=== PATIENT | female | born 1935 | race Caucasian/White ===

== ENCOUNTER → 2022-07-15 | Outpatient (CLI) | payer MEDICARE | END | disposition home or self-care (01) | LOC: LAB 11:30 → LAB SHORT 11:30 | DX: J20.0 Acute bronchitis due to Mycoplasma pneumoniae (principal) ==

== ENCOUNTER → 2022-12-26 | Outpatient (CLI) | payer OTHER ==
[2022-12-26 18:40] LABS: Percent Saturation 10.6 % (15.0-50.0)
== END | disposition home or self-care (01) ==
LOC: LAB SHORT 16:30 → LAB 16:30
PROVIDERS: Physician Assistant
DX: D64.9 Anemia, unspecified (principal)
CPT/HCPCS: 82728; 83540; 83550

== ENCOUNTER → 2023-01-04 | Outpatient (CLI) | payer OTHER ==
[2023-01-05 13:59] LABS: Stool Occult Bld Immuno 1 Negative (NEGATIVE)
== END | disposition home or self-care (01) ==
LOC: LAB SHORT 12:10 → LAB 12:10
PROVIDERS: Physician Assistant
DX: D64.9 Anemia, unspecified (principal)
CPT/HCPCS: 82274

== ENCOUNTER 2024-10-21 08:07 | Observation (INO) | payer OTHER ==
[~2024-10-21] VITALS: Ht 165.1 cm; Wt 53.4 kg
[2024-10-21] VITALS (25 sets, daily range): BP systolic 116–187; BP diastolic 70–123
[~2024-10-21 08:07] MED LIST: ALBU90OI INH; ALEN70 PO; BUSP10 PO; EZET10 PO; FURO20 PO; Isosorbide Mono30 MG PO; Nitrostat0.3 MG SL; OMEP20ER PO; POTA10T PO
--- NOTE | 2024-10-21 10:00 | NUR ---
pt given another blanket per request
[2024-10-21] MEDS ORDERED: Verapamil HCL 2.5 MG/ML 2ML Injection ONE (11:55)
[2024-10-21] MEDS ORDERED: Nitroglycerin 2 MG/20 ML BTL ONE (11:56)
[2024-10-21] MEDS ORDERED: Heparin Sodium 1000 Units/ML 10ML MDV ONE (11:56)
[2024-10-21] MEDS ORDERED: NS 1,000 ML IV ONE ×2 (11:56→12:16)
[2024-10-21] MEDS ORDERED: NS 250 ML IV ONE (11:56)
[2024-10-21] MEDS ORDERED: FentaNYL Citrate 50 MCG/ML 2 ML Injection ONE (12:15)
[2024-10-21] MEDS ORDERED: Midazolam HCl 1MG / ML 2ML Vial ONE (12:16)
--- NOTE | 2024-10-21 13:00 | NUR ---
PT BACK TO RECOVERY ROOM. TR BAND AND PRESSURE DRESSING TO R WRIST AND R FA. NO BLEEDING NOTED. GOOD PLETH TO R DIGITS ON SPO2 MONITOR.
--- NOTE | 2024-10-21 13:28 | NUR ---
pt given coffee per request. pt sitting up. radial site soft and non-tender per pt. no bleedin noted to radial site.
--- NOTE | 2024-10-21 13:41 | NUR ---
PRESSURE DRESSING TO R FA REMOVED. SITE SOFT AND NON-TENDER PER PT. NO BLEEDING OR SWELLING NOTED. R RADIAL SITE SOFT AND NON-TENDER PER PT. NO BLEEDING NOTED.
--- NOTE | 2024-10-21 13:54 | NUR ---
2cc removed from tr band. site soft and non-tender per pt. no bleeding noted.
[2024-10-21] MEDS ORDERED: HydrALAZINE HCl 25 MG Tab PO ONE (14:20)
--- NOTE | 2024-10-21 14:22 | NUR ---
pt co increased pain to r fa. avionics electronics technician malcolm rn assessed fa and felt it is swollen. dr crenshaw notifed. dr crenshaw to admit pt. pt hypertensive, dr crenshaw notified and gave verbal order for 25mg of hydralazine.
--- NOTE | 2024-10-21 14:32 | NUR ---
PT AMBULATED TO RESTROOM. PT NOW BACK IN BED. REPEAT V/S. 2CC REMOVED FROM TR BAND. RADIAL SITE SOFT AND NON-TENDER PER PT.
[2024-10-21] MEDS ORDERED: Acetaminophen 325 MG TABLET PO PRN (14:45)
[2024-10-21] MEDS ORDERED: FLU VACC TS2024-25(6MOS UP)/PF 45 MCG/0.5 ML SYRINGE IM SCH (14:50)
--- NOTE | 2024-10-21 14:50 | NUR ---
ULTRASOUND AT BEDSIDE
--- NOTE | 2024-10-21 15:00 | NUR ---
HOSPITALIST AT BEDSIDE TO EVALUATE PT.
--- NOTE | 2024-10-21 15:06 | NUR ---
TR BAND FULLY DEFLATED. SITE SOFT AND NON-TENDER PER PT. NO BLEEDING NOTED.
[2024-10-21] MEDS ORDERED: Acetaminophen 325 MG TABLET ONE (15:09)
--- NOTE | 2024-10-21 15:13 | NUR ---
DR DE LA FUENTE AT BEDSIDE
--- NOTE | 2024-10-21 15:37 | NUR ---
pt taken to [facility] via [facility]. pt report given to lavern gonsalves. no further questions reported.
[2024-10-21] MEDS ORDERED: HydrALAZINE HCl 20 MG / ML 1ML Vial IV PRN (15:50)
[2024-10-21] MEDS ORDERED: Alendronate Sodium 70 MG Tablet PO SCH (16:15)
[2024-10-21] MEDS ORDERED: Nitroglycerin 0.4 MG SUBL SL PRN (16:25)
[2024-10-21 16:27] LABS: BASOPHILS ABSOLUTE AUTO 0.08 K/mm3 (0.00-0.23); BASOPHILS PERCENT AUTO 1 % (0-2); EOSINOPHILS ABSOLUTE AUTO 0.36 K/mm3 (0.00-0.68); EOSINOPHILS PERCENT AUTO 5 % (0-6); Hematocrit 34.6 % (33.0-51.0); Hemoglobin 11.3 g/dL (11.5-16.0); IMMATURE GRAN ABSOLUTE AUTO 0.02 K/mm3 (0.00-0.10); IMMATURE GRAN PERCENT AUTO 0 % (0-1); LYMPHOCYTES ABSOLUTE AUTO 1.58 K/mm3 (0.84-5.20); LYMPHOCYTES PERCENT AUTO 23 % (21-46); MONOCYTES PERCENT AUTO 9 % (4-13); Mean Corpuscular HGB 31.1 pg (26.0-34.0); Mean Corpuscular HGB Conc 32.7 g/dL (31.5-36.5); Mean Corpuscular Volume 95 fL (80-100); Mean Platelet Volume 8.9 fL (9.1-12.4); NEUTROPHILS ABSOLUTE AUTO 4.18 K/mm3 (1.96-9.15); NEUTROPHILS PERCENT AUTO 61 % (41-73); Platelet Count 318 K/mm3 (150-400); RDW Coefficient Variation 12.8 % (11.7-14.2); RDW Standard Deviation 45.3 fL (35.1-46.3); Red Blood Cell Count 3.63 M/mm3 (3.80-5.20); White Blood Cell Count 6.82 K/mm3 (4.00-11.30)
[2024-10-21] MEDS ORDERED: Omeprazole 20 MG CapCR PO SCH (16:30)
[2024-10-21 16:41] LABS: Bun/Creatinine Ratio 16.8 (12.0-20.0); Calcium, Blood 9.7 mg/dL (8.5-10.1); Creatinine, Blood 0.72 mg/dL (0.40-1.00); Potassium, Blood 3.7 mmol/L (3.5-5.5)
[2024-10-21] MEDS ORDERED: LOSA50 PO (16:44)
[2024-10-21] MEDS ORDERED: GABA100 PO (16:44)
--- NOTE | 2024-10-21 17:06 | NUR ---
ASSUMPTION OF CARE/SHIFT SUMMARY PT ARRIVED TO PCU AROUND 1530. REPORT RECIEVED FROM BLOW MOLDING MACHINE OPERATOR RN. PT STOOD UP AND TRANSFERED FROM [facility] TO PCU BED. RIGHT RADIAL SITE FROM ANGIOGRAM. SITE RECOVERED AT [facility]. TR BAND IN PLACE, NO ACTIVE BLEEDING NOTED, NO BRUSIING. PER REPORT PT HAD A HEMATOMA OF THE UPPER ARM, PRESSURE APPLIED FOR 45 MINUTES, HEMATOMA IMPROVED. ARMBOARD IN PLACE. SLING PUT ON ARM FOR REMINDER TO NOT USE. SINUS RHYTHM, HR IN THE 60'S, DENIES CP/PRESSURE, REPORTS NEUROPATHY. BP ELEVATED, PER REPORT PT RECEIVED DOSE OF HYDRALAZINE. O2 >92% ON RA, DENIES SOB. TR BAND REMOVED, TEGADERM APPLIED. ARM MEASURED AT 23CM. PT REPORTS TENDER OF ARM BUT REPORTS IMPROVMENT OF SWELLING. PT DENIES ANY QUESTIONS AT THIS TIME. WILL MONITOR AND REPORT TO AUTO RESEARCH ENGINEER RN.
--- NOTE | 2024-10-21 20:16 | NUR ---
ASSUMPTION OF CARE ASSUMED CARE OF PATIENT AT 1900, BEDSIDE SHIFT REPORT RECEIVED FROM DONA RN. PT RESTING IN BED, SLEEPING BUT AROUSABLE. PT ORIENTED X4, ANSWERS QUESTIONS APPROPRIATELY, FOLLOWS DIRECTIONS WHEN PROMPTED AND IS ABLE TO MAKE HER NEEDS KNOWN. PT AMBULATES IN THE ROOM INDEPENDENTLY. MINIMAL MOVEMENT TO RIGHT ARM DUE TO ARM BOARD AND SLING IN PLACE POST CARDIAC CATH PROCEDURE. HR 70'S SINUS, SBP 160'S, MAP >65. PT DENIES CP/PRESSURE. PT ON RA, OXYGEN SATURATION >95%. ABDOMEN SOFT, BOWEL TONES ACTIVE THROUGHOUT, PT DENIES N/V. PT AMBULATES TO BEDSIDE TOILET TO VOID. PIV IN PLACE TO LAC SL. RIGHT ARM MEASURED AT MARKED SITE, 22CM, NO REDNESS NOTED, SITE NOT HOT TO THE TOUCH. PT STATES THAT SHE BELIEVES THE SWELLING HAS IMPROVED. ACCESS SITE TO RIGHT RADIAL, TEGADERM IN PLACE, SITE SOFT. BED IN LOWEST POSITION, CALL LIGHT WITHIN REACH, CARE CONTINUES.
[2024-10-21] MEDS ORDERED: BusPIRone HCl 10 MG Tab PO SCH (21:00)
[2024-10-22 03:44] VITALS: BP 149/96
--- NOTE | 2024-10-22 06:14 | NUR ---
SHIFT SUMMARY NO ACUTE CHANGES THIS SHIFT. PT CONTINUES TO REST IN BED, SLEEPING BUT AROUSABLE. PT ORIENTED X4, ANSWERS QUESTIONS APPROPRIATELY, FOLLOWS DIRECTION WHEN PROMPTED AND IS ABLE TO MAKE HER NEEDS KNOWN. PT AMBULATES IN THE ROOM INDEPENDENTLY WITH MINIMAL HELP WITH CORD MANAGEMENT. HR 70'S SINUS, MAP >65. PT DENIES CP/PRESSURE. RIGHT RADIAL ACCESS SITE WITH TEGADERM AND ARMBOARD IN PLACE, SITE SOFT. ARM MEASURED THIS SHIFT AT MARKED AREA, SWELLING APPEARS TO HAVE IMPROVED. PT STATES IT IS PAINFUL WHEN HER ARM IS STRAIGHT. PT ON RA, OXYGEN SATURATION >95%. ABDOMEN SOFT, BOWEL TONES ACTIVE THROUGHOUT, PT HAD 1 BM THIS SHIFT. PT AMBULATES TO TOILET TO VOID. PIV IN PLACE TO LAC SL. BED IN LOWEST POSTION, CALL LIGHT WITHIN REACH, CARE CONTINUES.
[2024-10-22 07:31] VITALS: BP 144/79
[2024-10-22] MEDS ORDERED: Furosemide 20 MG Tab PO SCH (09:00)
[2024-10-22] MEDS ORDERED: Isosorbide Mononitrate 60 MG TABCR PO SCH (09:00)
[2024-10-22] MEDS ORDERED: Potassium Chloride 10 Meq Tablet SA PO SCH (09:00)
[2024-10-22] MEDS ORDERED: Enoxaparin 30 MG/0.3 ML SYR SC SCH (09:00)
[2024-10-22] MEDS ORDERED: AmLODIPine Besylate 5 MG Tab PO SCH (09:00)
[2024-10-22] MEDS ORDERED: Ezetimibe 10 MG Tab PO SCH (09:00)
[2024-10-22] MEDS ORDERED: AMLO10 PO (10:23)
[2024-10-22 10:32] VITALS: BP 92/62
[2024-10-22] MEDS ORDERED: NS 500 ML IV SCH (12:00)
--- NOTE | 2024-10-22 12:17 | NUR ---
REPORT RECEIVED VERIFIED PT A/O X4 ABD VERY PLEASENT IS HOPING TO GO HOME THIS MORNING. SOFTWARE EDUCATOR IN TO SEE PT AND OKed discharge. PT HAS NO COMPLAINTS OF PAIN SHOWS NO DISTRESS, RIGHT ARM SITE LOOKS CDI, NO S/S OF BLEEDING.
--- NOTE | 2024-10-22 12:20 | NUR ---
0945 DISCHARGE ORDERS RECEIVED AND IMPLEMENTED. PT WAS ASSISTED TO STAND BUT BECAME VERY DIZZY AND DIAPHORETIC, PT WAS HYPOTENSIVE IN THE 90S SO WAS ASSISTED BACK TO BED, ATTEMPTED ORTHOSTATICS BUT PT TO DIZZY. DR CORBIN NOTIFIED AND DISCHARGE HELD FOR THE MORNING, BOLUS ORDERED TO BE GIVEN. NEW IV STARTED TO LEFT AC AND BOLUS STARTED. PT STATED SHE FEELS FINE NOW AND IS FEEDING SELF LUNCH.
[2024-10-22] MEDS ORDERED: NS 500 ML IV ONE (15:15)
== END 2024-10-22 17:11 | disposition home or self-care (01) ==
LOC: MHTC 08:07 → MEDS 09:00 → MHTC 09:00 → PCU 09:00 → MHTC 11-21 08:00
PROVIDERS: Family Medicine; ADMIT Internal Medicine
DX: I25.10 Atherosclerotic heart disease of native coronary artery without angina pectoris (principal); I12.9 Hypertensive chronic kidney disease with stage 1 through stage 4 chronic kidney disease, or unspecified chronic kidney disease; N18.30 Chronic kidney disease, stage 3 unspecified; E78.2 Mixed hyperlipidemia; Z79.899 Other long term (current) drug therapy; Z88.1 Allergy status to other antibiotic agents; Z88.2 Allergy status to sulfonamides; Z88.8 Allergy status to other drugs, medicaments and biological substances; M79.89 Other specified soft tissue disorders; Z91.013 Allergy to seafood; Z90.710 Acquired absence of both cervix and uterus
CPT/HCPCS: 36415; 76937; 80048; 85025; 93454; 93931; 93971; 99152; 99153; A9270; C1769; C1887; C1894; G0378; J1644; J2250; J3010; J7030; J7040; J7050; Q9967

== ENCOUNTER 2024-12-31 15:10 | Inpatient (IN) | payer OTHER ==
[~2024-12-31] VITALS: Ht 165.1 cm; Wt 53.5 kg
[~2024-12-31 15:10] MED LIST changes: +AMLO10 PO; +GABA100 PO; +LOSA25 PO
[2024-12-31 16:01] LABS: BASOPHILS ABSOLUTE AUTO 0.06 K/mm3 (0.00-0.23); BASOPHILS PERCENT AUTO 1 % (0-2); EOSINOPHILS ABSOLUTE AUTO 0.18 K/mm3 (0.00-0.68); EOSINOPHILS PERCENT AUTO 2 % (0-6); Hemoglobin 11.5 g/dL (11.5-16.0); IMMATURE GRAN ABSOLUTE AUTO 0.04 K/mm3 (0.00-0.10); IMMATURE GRAN PERCENT AUTO 0 % (0-1); LYMPHOCYTES ABSOLUTE AUTO 1.62 K/mm3 (0.84-5.20); LYMPHOCYTES PERCENT AUTO 16 % (21-46); MONOCYTES ABSOLUTE AUTO 0.85 K/mm3 (0.16-1.47); MONOCYTES PERCENT AUTO 8 % (4-13); Mean Corpuscular HGB 30.7 pg (26.0-34.0); Mean Corpuscular HGB Conc 32.9 g/dL (31.5-36.5); Mean Corpuscular Volume 93 fL (80-100); NEUTROPHILS ABSOLUTE AUTO 7.52 K/mm3 (1.96-9.15); NEUTROPHILS PERCENT AUTO 73 % (41-73); Platelet Count 357 K/mm3 (150-400); RDW Coefficient Variation 12.7 % (11.7-14.2); RDW Standard Deviation 43.8 fL (35.1-46.3); Red Blood Cell Count 3.75 M/mm3 (3.80-5.20); White Blood Cell Count 10.27 K/mm3 (4.00-11.30)
[2024-12-31 17:00] LABS: Alanine Aminotransfer (ALT/SGP 20 U/L (12-78); Albumin, Blood 3.5 g/dL (3.4-5.0); Albumin/Globulin Ratio 0.9 (0.8-1.8); Alk Phos 53 U/L (50-136); Anion Gap 13 mmol/L (3-11); Aspartate Aminotrans (AST/SGOT 16 U/L (12-37); Bilirubin, Direct <0.1 mg/dL (0.0-0.3); Bilirubin, Indirect Unable to Calculate mg/dL (0.1-0.7); Bilirubin, Total 0.6 mg/dL (0.1-1.0); Blood Urea Nitrogen 17 mg/dL (8-24); Bun/Creatinine Ratio 21.7 (12.0-20.0); CO2, Blood 24 mmol/L (21-32); Calcium, Blood 9.9 mg/dL (8.5-10.1); Chloride, Blood 106 mmol/L (98-108); Creatinine, Blood 0.78 mg/dL (0.40-1.00); Globulin, Blood 3.8 g/dL (2.2-4.0); Glomerular Filtration Rate 73 (60-); Glucose, Blood 103 mg/dL (70-99); Sodium, Blood 139 mmol/L (136-145); Total Protein, Blood 7.3 g/dL (6.4-8.2)
[2024-12-31 18:51] LABS: Source, Urine Clean Catch
[2024-12-31] MEDS ORDERED: Amoxicillin/Clavulanate K 875 MG Tab PO ONE (19:10)
[2024-12-31 19:15] LABS: Appearance, Urine Clear (Clear); Bilirubin, Urine Neg (Neg); Blood, Urine Neg (Neg); Color, Urine Yellow (P-Yellow); Glucose Qualitative, Urine Neg (Neg); Ketones, Urine 1+ (Neg); Leukocyte Esterase, Urine 1+ (Neg); Nitrite, Urine Neg (Neg); Protein, Urine Neg (Neg); Urobilinogen, Urine NORM (Normal); pH, Urine 6.5 (5.0-8.0)
[2024-12-31] MEDS ORDERED: Piperacillin/Tazobactam Sod 4.5 GM in NS 100 ML IV ONE (19:35)
[2024-12-31 19:37] LABS: Bacteria Few /hpf; Red Blood Cells, Urine Not Seen /hpf (0-2); Squamous Epithelial Cells Few /hpf (Few)
[2024-12-31] MEDS ORDERED: OxyCODONE 5 mg/Acetamin 325 mg TABLET PO PRN (19:50)
[2024-12-31] MEDS ORDERED: Ondansetron HCl 2 MG / ML 2ML Vial IV PRN (19:50)
[2024-12-31] MEDS ORDERED: Lactated Ringer's 1,000 ML IV SCH (19:50)
[2024-12-31] MEDS ORDERED: Lactated Ringer's 500 ML IV ONE (20:00)
[2024-12-31] MEDS ORDERED: Lactobacil 2-S.Thermo-Bifido 1 1 Cap PO SCH (21:00)
[2024-12-31] MEDS ORDERED: BusPIRone HCl 10 MG Tab PO SCH (21:00)
[2024-12-31 22:27] VITALS: BP 159/66
[2025-01-01] MEDS ORDERED: Piperacillin/Tazobactam Sod 3.375 GM in NS 100 ML IV SCH (01:27)
[2025-01-01] MEDS ORDERED: NS 250 ML IV PRN (01:50)
[2025-01-01 02:41] VITALS: BP 142/68
--- NOTE | 2025-01-01 05:05 | NUR ---
SHIFT SUMMARY PT A&Ox4 AND PLEASANT. PT C/O RLQ PAIN BUT DECLIINED PAIN MEDICATIONS. PT REPOSITIONED AND HEAT PACK APPLIED WITH GOOD EFFECT. PT TOLERATING CL DIET. LR INFUSING @ 75ml/hr. IV ABX GIVEN PER EMAR. NEW ASIF BANDAGE PLACED ON LEFT ANKLE. PT REPORTS FALL AT HOME AND FRACTURED ANKLE PER PCP BUT OK TO WALK. VSS. BED IN LOWEST POSITION AND CALL LIGHT IN REACH.
[2025-01-01 05:17] LABS: Hematocrit 32.3 % (33.0-51.0); Hemoglobin 10.6 g/dL (11.5-16.0); Mean Corpuscular HGB 30.6 pg (26.0-34.0); Mean Corpuscular HGB Conc 32.8 g/dL (31.5-36.5); Mean Corpuscular Volume 93 fL (80-100); Mean Platelet Volume 8.8 fL (9.1-12.4); Platelet Count 306 K/mm3 (150-400); RDW Coefficient Variation 12.7 % (11.7-14.2); RDW Standard Deviation 43.6 fL (35.1-46.3); Red Blood Cell Count 3.46 M/mm3 (3.80-5.20); White Blood Cell Count 6.15 K/mm3 (4.00-11.30)
[2025-01-01 05:43] LABS: Calcium, Blood 9.3 mg/dL (8.5-10.1); Creatinine, Blood 0.84 mg/dL (0.40-1.00); Potassium, Blood 3.8 mmol/L (3.5-5.5)
[2025-01-01] MEDS ORDERED: Omeprazole 20 MG CapCR PO SCH (06:00)
[2025-01-01 07:10] VITALS: BP 134/69
[2025-01-01] MEDS ORDERED: Losartan Potassium 50 MG Tab PO SCH (09:00)
[2025-01-01] MEDS ORDERED: AmLODIPine Besylate 5 MG Tab PO SCH (09:00)
[2025-01-01] MEDS ORDERED: Isosorbide Mononitrate 60 MG TABCR PO SCH (09:00)
[2025-01-01 12:40] VITALS: BP 99/56
[2025-01-01 17:38] VITALS: BP 113/54
--- NOTE | 2025-01-01 19:27 | NUR ---
PT A&OX4, VSS WITH ONE LOW BP EARLY THIS AFTERNOON, PT REPORTED FEELING DIZZY WHEN STANDING. SBA WITH FWW TO BATHROOM. LR CONTINUOUS AT 75ML/HR. PT C/O HEADACHE, ABDOMINAL PAIN, AND NAUSEA. MEDICATED PER EMAR WITH GOOD EFFECT. PT PLEASANT AND COOPERATIVE WITH CARE, CALL LIGHT IN REACH, BED IN LOW LOCKED POSITION. 1 SMALL BM THIS SHIFT. DR. ALFARO CONSULTED.
[2025-01-01 19:28] VITALS: BP 111/59
[2025-01-01 22:24] VITALS: BP 107/58
[2025-01-02 03:04] VITALS: BP 100/50
--- NOTE | 2025-01-02 03:08 | NUR ---
ATTEMPTED TO CONTACT DR. KOHLER PODIATRY TO INFORM OF CONSULT ORDER BUT I KEPT GETTING A BUSY SIGNASL
--- NOTE | 2025-01-02 04:56 | NUR ---
SHIFT SUMMARY PT ALERT ORIENTED X 4 ABLE TO VERBALIZE NEEDS GETS UP AND AMBULATES TO THE BATHROOM WITH WALKER ANDS SBA. SHE HAS A CONSULT ORDERED FOR HER FX TO THE LT ANKLE. I ATTEMPTED TO CALL SEVERAL TIMES BUT JUST GET A BUSY SIGNAL. VSS ON RA SATTING AT 98%. C/O ABD PAIN MEDICATED WITH PERCOCET WITH GOOD RELIEF. REMAINS ON ZOSYN Q6HR. REMAINS ON LR AT 75. SHE USES A HEATING PAD TO HER ABD TO HELP WITH THE PAIN. RESTING IN BED AT THIS TIME WITH CALL LITGHT IN REACH
[2025-01-02 05:43] LABS: BASOPHILS ABSOLUTE AUTO 0.05 K/mm3 (0.00-0.23); BASOPHILS PERCENT AUTO 1 % (0-2); EOSINOPHILS ABSOLUTE AUTO 0.29 K/mm3 (0.00-0.68); EOSINOPHILS PERCENT AUTO 5 % (0-6); Hematocrit 28.7 % (33.0-51.0); Hemoglobin 9.2 g/dL (11.5-16.0); IMMATURE GRAN ABSOLUTE AUTO 0.01 K/mm3 (0.00-0.10); IMMATURE GRAN PERCENT AUTO 0 % (0-1); LYMPHOCYTES ABSOLUTE AUTO 1.42 K/mm3 (0.84-5.20); LYMPHOCYTES PERCENT AUTO 22 % (21-46); MONOCYTES ABSOLUTE AUTO 0.74 K/mm3 (0.16-1.47); MONOCYTES PERCENT AUTO 12 % (4-13); Mean Corpuscular HGB 30.5 pg (26.0-34.0); Mean Corpuscular HGB Conc 32.1 g/dL (31.5-36.5); Mean Corpuscular Volume 95 fL (80-100); NEUTROPHILS ABSOLUTE AUTO 3.83 K/mm3 (1.96-9.15); NEUTROPHILS PERCENT AUTO 60 % (41-73); Platelet Count 277 K/mm3 (150-400); RDW Coefficient Variation 12.8 % (11.7-14.2); RDW Standard Deviation 44.3 fL (35.1-46.3); Red Blood Cell Count 3.02 M/mm3 (3.80-5.20); White Blood Cell Count 6.34 K/mm3 (4.00-11.30)
[2025-01-02 06:14] LABS: C-REACTIVE PROTEIN, EXT RANGE <0.290 mg/dL (0.000-0.300); Magnesium, Blood 2.2 mg/dL (1.6-2.4)
[2025-01-02 06:15] LABS: Alanine Aminotransfer (ALT/SGP 12 U/L (12-78); Albumin, Blood 2.8 g/dL (3.4-5.0); Albumin/Globulin Ratio 0.9 (0.8-1.8); Alk Phos 35 U/L (50-136); Anion Gap 7 mmol/L (3-11); Aspartate Aminotrans (AST/SGOT 9 U/L (12-37); Bilirubin, Total 0.9 mg/dL (0.1-1.0); Blood Urea Nitrogen 8 mg/dL (8-24); Bun/Creatinine Ratio 8.7 (12.0-20.0); CO2, Blood 28 mmol/L (21-32); Calcium, Blood 8.9 mg/dL (8.5-10.1); Chloride, Blood 109 mmol/L (98-108); Creatinine, Blood 0.92 mg/dL (0.40-1.00); Glomerular Filtration Rate 60 (60-); Glucose, Blood 83 mg/dL (70-99); Phosphorus, Blood 3.3 mg/dL (2.5-4.9); Potassium, Blood 3.6 mmol/L (3.5-5.5); Sodium, Blood 140 mmol/L (136-145); Total Protein, Blood 5.8 g/dL (6.4-8.2)
[2025-01-02 07:13] VITALS: BP 125/69
--- NOTE | 2025-01-02 10:14 | NUR ---
DR. HALLE ALFARO IN TO SEE PT AT BEDSIDE. PER , OK TO UPDATED DIET ORDER TO FIBER RESTRICTED AT THIS TIME.
--- NOTE | 2025-01-02 17:37 | NUR ---
SUMMARY NO ACUTE CHANGES THIS SHIFT. PT DIET UPGRADED TO LOW FIBER, TOLORATING SO FAR. SOME ABD DISCOMFORT AFTER LUNCH. PT DENIES SHARP PAIN. DR. KOHLER AT BEDSIDE TODAY. PLAN IS TO FOLLOW UP OUT PATIENT FOR WALKING CAST BOOT. PER DR. KOHLER OK TO LEAVE CURRENT SPLINT IN PLACE. PT IS SBA TO BATHROOM DUE TO LINES. ALERT AND ORIENTED X4, ABLE TO EXPRESS NEEDS.
[2025-01-02] MEDS ORDERED: Piperacillin/Tazobactam Sod 2.25 GM in NS 50 ML IV SCH (18:00)
[2025-01-02 22:03] VITALS: BP 132/67
--- NOTE | 2025-01-03 04:02 | NUR ---
SHIFT SUMMARY PT ALERT ORIENTED X 4 ABLE TO VERBALIZE NEEDS AMBULATES WITH SBA AND WALKER TO THE BATHROOM. SHE HAS A BRACE ON HER LT ANKLE R/T FX THAT SHE SUSTAINED BEFORE ADMIT. CONTINUES ON ZOSYN Q6HR. REMAINS ON LR AT 50. C/O ABD AND FOOT PAIN MEDICATED WITHG PERCOCET WITH GOOD PAIN RELIEF. CONTINUES ON A FIBER RESTRICTED DIET. VSS ON RA SATTING AT 95%. RESTING IN BED AT THIS TIME WITH CALL LIGHT IN REACH
[2025-01-03 04:44] VITALS: BP 125/58
[2025-01-03 07:31] VITALS: BP 132/71
[2025-01-03] MEDS ORDERED: Polyethylene Glycol 3350 17 gm PO PRN (10:00)
[2025-01-03] MEDS ORDERED: Polyethylene Glycol 3350 17 gm PO ONE (10:00)
--- NOTE | 2025-01-03 19:06 | NUR ---
SUMMARY NO ACUTE CHANGES THIS SHIFT. PT ABD PAIN TREATED PER EMAR. TOLORATING FULL LIQUID DIET. CALLS APPROPRIATELY. PT DID HAVE BM THIS SHIFT. BUT FLUSHED BEFORE STAFF COULD ASSESS. ORIENTED X4
[2025-01-03 19:35] VITALS: BP 108/58
[2025-01-04 03:24] VITALS: BP 137/83
--- NOTE | 2025-01-04 04:07 | NUR ---
SHIFT SUMMARY PT ALERT ORIENTED ABLE TO VERBALIZE NEEDS. AMBULATES TO THE BATHROOM WITH SBA AND WALKER. SHE HAS A BRACE ON HER LT ANKLE THAT WAS FRACTURED BEFORE HER ADMIT. SHE WILL FOLLOW UP WITH THE TOOL REPAIR TECHNICIAN AFTER DISCHARGE. SHE HAD A MEDIUM BM THIS SHIFT. REMAINS ON ZOSYN Q6HR. VSS ON RA SATTING AT 96%. REMAINS ON LR AT 50. SHE REMAINS ON A FULL LIQUID DIET DUE TO WHEN THE TRIED TO UP HER DIET SHE WAS HAVING MORE PAIN TO HER ABD. SHE REMAINS ON PERCOCET TO HELP TO CONTROL HER PAIN BUT THESE MEDS TEND TO MAKE HER A LITTLE CONFUSED. SHES RESTING IN BED AT THIS TIME WITH CALL LIGHT IN REACH
[2025-01-04 05:33] LABS: BASOPHILS ABSOLUTE AUTO 0.08 K/mm3 (0.00-0.23); BASOPHILS PERCENT AUTO 1 % (0-2); EOSINOPHILS PERCENT AUTO 7 % (0-6); Hematocrit 28.5 % (33.0-51.0); Hemoglobin 9.4 g/dL (11.5-16.0); IMMATURE GRAN ABSOLUTE AUTO 0.03 K/mm3 (0.00-0.10); IMMATURE GRAN PERCENT AUTO 1 % (0-1); LYMPHOCYTES ABSOLUTE AUTO 1.37 K/mm3 (0.84-5.20); LYMPHOCYTES PERCENT AUTO 22 % (21-46); MONOCYTES ABSOLUTE AUTO 0.66 K/mm3 (0.16-1.47); MONOCYTES PERCENT AUTO 11 % (4-13); Mean Corpuscular HGB 30.8 pg (26.0-34.0); Mean Corpuscular Volume 93 fL (80-100); NEUTROPHILS ABSOLUTE AUTO 3.64 K/mm3 (1.96-9.15); NEUTROPHILS PERCENT AUTO 59 % (41-73); Platelet Count 290 K/mm3 (150-400); RDW Coefficient Variation 12.6 % (11.7-14.2); RDW Standard Deviation 42.8 fL (35.1-46.3); Red Blood Cell Count 3.05 M/mm3 (3.80-5.20); White Blood Cell Count 6.18 K/mm3 (4.00-11.30)
[2025-01-04 06:15] LABS: Albumin, Blood 2.9 g/dL (3.4-5.0); Albumin/Globulin Ratio 0.9 (0.8-1.8); Bilirubin, Total 0.8 mg/dL (0.1-1.0); Bun/Creatinine Ratio 9.3 (12.0-20.0); Creatinine, Blood 0.75 mg/dL (0.40-1.00); Globulin, Blood 3.3 g/dL (2.2-4.0); Potassium, Blood 3.4 mmol/L (3.5-5.5); Total Protein, Blood 6.2 g/dL (6.4-8.2)
[2025-01-04 08:04] VITALS: BP 142/70
[2025-01-04] MEDS ORDERED: AMOCLA875 PO (12:51)
--- NOTE | 2025-01-04 13:13 | NUR ---
DISCHARGE NOTE PT DISCHARGED TO HOME, PICKED UP BY HER . IV REMOVED. NO ACUTE CHANGES PRIOR TO DISCHARGE. PT HAS NO COMPLAINTS. TOLERATING FULL LIQUID DIET WELL. MEDICATED FOR PAIN PRIOR TO THE DISCHARGE. DISCHARGE EDUCATION AND INFORMATION REVIEWED WITH THE PT. MEDICATIONS FAXED TO THE PHARMACY OF HER CHOICE.
== END 2025-01-04 13:04 | disposition home or self-care (01) | DRG 392 ==
LOC: ER 15:10 → MEDS 15:11
PROVIDERS: Hospitalist; Nurse Practitioner Acute Care; Student in an Organized Health Care Education/Training Program; ADMIT Student in an Organized Health Care Education/Training Program
DX: K57.20 Diverticulitis of large intestine with perforation and abscess without bleeding (principal); I10 Essential (primary) hypertension; K21.9 Gastro-esophageal reflux disease without esophagitis; I25.10 Atherosclerotic heart disease of native coronary artery without angina pectoris; M81.0 Age-related osteoporosis without current pathological fracture; F41.9 Anxiety disorder, unspecified; K59.00 Constipation, unspecified; Z88.2 Allergy status to sulfonamides; W19.XXXD Unspecified fall, subsequent encounter; E78.00 Pure hypercholesterolemia, unspecified; Z88.1 Allergy status to other antibiotic agents; Z91.013 Allergy to seafood; Z91.018 Allergy to other foods; Z91.048 Other nonmedicinal substance allergy status; Z79.899 Other long term (current) drug therapy; Z90.49 Acquired absence of other specified parts of digestive tract; Z98.890 Other specified postprocedural states; M20.42 Other hammer toe(s) (acquired), left foot; M20.41 Other hammer toe(s) (acquired), right foot; S92.352G Displaced fracture of fifth metatarsal bone, left foot, subsequent encounter for fracture with delayed healing; Z86.79 Personal history of other diseases of the circulatory system
CPT/HCPCS: 36415; 73610; 74177; 80048; 80053; 80076; 81001; 83690; 83735; 84100; 85025; 85027; 86140; 87086; 96366; 96375; 96376; 97110; 97161; 99285-25; A9270; G0378; J2405; J2543; J7050; J7120; Q9967

== ENCOUNTER 2025-02-02 08:45 | Emergency (ER) | payer OTHER ==
[~2025-02-02] VITALS: Ht 157.5 cm; Wt 54.4 kg
[~2025-02-02 08:45] MED LIST changes: +AMOCLA875 PO
[2025-02-02 09:27] LABS: BASOPHILS ABSOLUTE AUTO 0.05 K/mm3 (0.00-0.23); BASOPHILS PERCENT AUTO 1 % (0-2); EOSINOPHILS ABSOLUTE AUTO 0.15 K/mm3 (0.00-0.68); EOSINOPHILS PERCENT AUTO 2 % (0-6); Hematocrit 33.8 % (33.0-51.0); Hemoglobin 11.1 g/dL (11.5-16.0); IMMATURE GRAN ABSOLUTE AUTO 0.03 K/mm3 (0.00-0.10); IMMATURE GRAN PERCENT AUTO 0 % (0-1); LYMPHOCYTES ABSOLUTE AUTO 1.13 K/mm3 (0.84-5.20); LYMPHOCYTES PERCENT AUTO 12 % (21-46); MONOCYTES ABSOLUTE AUTO 0.75 K/mm3 (0.16-1.47); MONOCYTES PERCENT AUTO 8 % (4-13); Mean Corpuscular HGB 30.6 pg (26.0-34.0); Mean Corpuscular HGB Conc 32.8 g/dL (31.5-36.5); Mean Corpuscular Volume 93 fL (80-100); Mean Platelet Volume 8.8 fL (9.1-12.4); NEUTROPHILS ABSOLUTE AUTO 7.18 K/mm3 (1.96-9.15); NEUTROPHILS PERCENT AUTO 77 % (41-73); Platelet Count 313 K/mm3 (150-400); RDW Coefficient Variation 12.9 % (11.7-14.2); Red Blood Cell Count 3.63 M/mm3 (3.80-5.20); White Blood Cell Count 9.29 K/mm3 (4.00-11.30)
[2025-02-02 09:35] LABS: Source, Urine Clean Catch
[2025-02-02 09:38] LABS: Appearance, Urine Cloudy (Clear); Bilirubin, Urine Neg (Neg); Blood, Urine 5+ (Neg); Color, Urine Yellow (P-Yellow); Glucose Qualitative, Urine Neg (Neg); Ketones, Urine Neg (Neg); Leukocyte Esterase, Urine 3+ (Neg); Nitrite, Urine Neg (Neg); Protein, Urine 2+ (Neg); Urobilinogen, Urine NORM (Normal); pH, Urine 6.5 (5.0-8.0)
[2025-02-02 09:48] LABS: Albumin, Blood 3.4 g/dL (3.4-5.0); Albumin/Globulin Ratio 0.9 (0.8-1.8); Bilirubin, Total 0.6 mg/dL (0.1-1.0); Bun/Creatinine Ratio 16.5 (12.0-20.0); Calcium, Blood 9.5 mg/dL (8.5-10.1); Creatinine, Blood 0.79 mg/dL (0.40-1.00); Globulin, Blood 3.7 g/dL (2.2-4.0); Potassium, Blood 3.4 mmol/L (3.5-5.5); Total Protein, Blood 7.1 g/dL (6.4-8.2)
[2025-02-02 10:25] LABS: Bacteria Many /hpf; Red Blood Cells, Urine 25-50 /hpf (0-2); Squamous Epithelial Cells Few /hpf (Few); White Blood Cells, Urine 50-100 /hpf (0-5)
[2025-02-02] MEDS ORDERED: NITR100CA PO (11:14)
[2025-02-02 11:28] VITALS: BP 134/94
== END 2025-02-02 11:41 | disposition home or self-care (01) ==
LOC: ER 08:45
PROVIDERS: Student in an Organized Health Care Education/Training Program
DX: N39.0 Urinary tract infection, site not specified (principal); Z79.899 Other long term (current) drug therapy; Z88.2 Allergy status to sulfonamides; Z88.1 Allergy status to other antibiotic agents; Z91.013 Allergy to seafood; Z88.8 Allergy status to other drugs, medicaments and biological substances
CPT/HCPCS: 74177; 80053; 81001; 85025; 87077; 87086; 87186; 99284-25; Q9967

== ENCOUNTER 2025-02-03 23:59 | Emergency (ER) | payer OTHER ==
[~2025-02-03] VITALS: Ht 165.1 cm; Wt 53.5 kg
[~2025-02-03 23:59] MED LIST changes: +NITR100CA PO
[2025-02-04 00:49] LABS: BASOPHILS ABSOLUTE AUTO 0.05 K/mm3 (0.00-0.23); BASOPHILS PERCENT AUTO 0 % (0-2); EOSINOPHILS ABSOLUTE AUTO 0.03 K/mm3 (0.00-0.68); EOSINOPHILS PERCENT AUTO 0 % (0-6); Hematocrit 32.5 % (33.0-51.0); IMMATURE GRAN ABSOLUTE AUTO 0.04 K/mm3 (0.00-0.10); IMMATURE GRAN PERCENT AUTO 0 % (0-1); LYMPHOCYTES ABSOLUTE AUTO 0.79 K/mm3 (0.84-5.20); LYMPHOCYTES PERCENT AUTO 7 % (21-46); MONOCYTES ABSOLUTE AUTO 1.05 K/mm3 (0.16-1.47); MONOCYTES PERCENT AUTO 9 % (4-13); Mean Corpuscular HGB 30.7 pg (26.0-34.0); Mean Corpuscular HGB Conc 33.8 g/dL (31.5-36.5); Mean Corpuscular Volume 91 fL (80-100); NEUTROPHILS PERCENT AUTO 83 % (41-73); RDW Coefficient Variation 12.8 % (11.7-14.2); RDW Standard Deviation 42.4 fL (35.1-46.3); Red Blood Cell Count 3.58 M/mm3 (3.80-5.20); White Blood Cell Count 11.46 K/mm3 (4.00-11.30)
[2025-02-04 00:57] LABS: CORONAVIRUS COVID-19 AG Negative (NEGATIVE); INFLUENZA A AG Negative (NEGATIVE); INFLUENZA B AG Negative (NEGATIVE)
[2025-02-04 01:07] LABS: Platelet Count 291 K/mm3 (150-400)
[2025-02-04 01:11] LABS: Albumin, Blood 3.5 g/dL (3.4-5.0); Bilirubin, Total 1.1 mg/dL (0.1-1.0); Bun/Creatinine Ratio 12.9 (12.0-20.0); Calcium, Blood 8.9 mg/dL (8.5-10.1); Creatinine, Blood 0.78 mg/dL (0.40-1.00); Globulin, Blood 3.6 g/dL (2.2-4.0); Potassium, Blood 3.4 mmol/L (3.5-5.5); Thyroid Stimulating Hormone 1.08 uIU/mL (0.360-4.800); Total Protein, Blood 7.1 g/dL (6.4-8.2)
[2025-02-04 02:18] LABS: Source, Urine Straight Cath
[2025-02-04 02:36] LABS: Bilirubin, Urine Neg (Neg); Blood, Urine Neg (Neg); Glucose Qualitative, Urine Neg (Neg); Ketones, Urine 3+ (Neg); Leukocyte Esterase, Urine Neg (Neg); Nitrite, Urine Neg (Neg); Protein, Urine 1+ (Neg); Urobilinogen, Urine NORM (Normal)
[2025-02-04 02:58] LABS: Color, Urine Yellow (P-Yellow)
[2025-02-04 02:59] LABS: Appearance, Urine Hazy (Clear); Bacteria Few /hpf; Red Blood Cells, Urine 0-2 /hpf (0-2); Squamous Epithelial Cells Few /hpf (Few)
[2025-02-04 03:00] VITALS: BP 146/69
[2025-02-04] MEDS ORDERED: Potassium Chloride 10 Meq Tablet SA PO ONE (03:05)
[2025-02-04] MEDS ORDERED: NS 1,000 ML IV SCH (03:05)
== END 2025-02-04 03:19 | disposition home or self-care (01) ==
LOC: ER 23:59
PROVIDERS: Emergency Medicine
DX: E86.0 Dehydration (principal); E87.6 Hypokalemia; N39.0 Urinary tract infection, site not specified; I10 Essential (primary) hypertension; E78.5 Hyperlipidemia, unspecified; K21.9 Gastro-esophageal reflux disease without esophagitis; Z88.2 Allergy status to sulfonamides; Z91.013 Allergy to seafood; Z79.899 Other long term (current) drug therapy; Z79.2 Long term (current) use of antibiotics; Z79.84 Long term (current) use of oral hypoglycemic drugs
CPT/HCPCS: 80053; 81001; 83690; 83735; 84100; 84443; 84484; 85025; 87086; 87428-QW; 93005; 93010; 99284-25; A9270

== ENCOUNTER 2025-02-11 11:23 | Inpatient (IN) | payer OTHER ==
[~2025-02-11] VITALS: Ht 165.1 cm; Wt 54.5 kg
[2025-02-11 12:16] LABS: BASOPHILS ABSOLUTE AUTO 0.05 K/mm3 (0.00-0.23); BASOPHILS PERCENT AUTO 1 % (0-2); EOSINOPHILS ABSOLUTE AUTO 0.06 K/mm3 (0.00-0.68); EOSINOPHILS PERCENT AUTO 1 % (0-6); Hematocrit 26.7 % (33.0-51.0); Hemoglobin 8.9 g/dL (11.5-16.0); IMMATURE GRAN ABSOLUTE AUTO 0.05 K/mm3 (0.00-0.10); IMMATURE GRAN PERCENT AUTO 1 % (0-1); LYMPHOCYTES ABSOLUTE AUTO 0.53 K/mm3 (0.84-5.20); LYMPHOCYTES PERCENT AUTO 5 % (21-46); MONOCYTES ABSOLUTE AUTO 0.37 K/mm3 (0.16-1.47); MONOCYTES PERCENT AUTO 3 % (4-13); Mean Corpuscular HGB 31.3 pg (26.0-34.0); Mean Corpuscular HGB Conc 33.3 g/dL (31.5-36.5); Mean Corpuscular Volume 94 fL (80-100); Mean Platelet Volume 8.5 fL (9.1-12.4); NEUTROPHILS PERCENT AUTO 90 % (41-73); Platelet Count 335 K/mm3 (150-400); RDW Coefficient Variation 12.5 % (11.7-14.2); RDW Standard Deviation 43.4 fL (35.1-46.3); Red Blood Cell Count 2.84 M/mm3 (3.80-5.20); White Blood Cell Count 11.06 K/mm3 (4.00-11.30)
[2025-02-11 12:46] LABS: Albumin, Blood 2.7 g/dL (3.4-5.0); Albumin/Globulin Ratio 0.8 (0.8-1.8); Bilirubin, Total 0.3 mg/dL (0.1-1.0); Bun/Creatinine Ratio 13.7 (12.0-20.0); Calcium, Blood 8.7 mg/dL (8.5-10.1); Creatinine, Blood 0.73 mg/dL (0.40-1.00); Globulin, Blood 3.2 g/dL (2.2-4.0); Potassium, Blood 3.8 mmol/L (3.5-5.5); Total Protein, Blood 5.9 g/dL (6.4-8.2)
[2025-02-11 14:48] LABS: Source, Urine Clean Catch
[2025-02-11 14:58] LABS: Appearance, Urine Clear (Clear); Bilirubin, Urine Neg (Neg); Blood, Urine Neg (Neg); Color, Urine Yellow (P-Yellow); Glucose Qualitative, Urine Neg (Neg); Ketones, Urine Neg (Neg); Leukocyte Esterase, Urine Neg (Neg); Nitrite, Urine Neg (Neg); Protein, Urine 2+ (Neg); Urobilinogen, Urine NORM (Normal)
[2025-02-11 15:23] LABS: Bacteria Few /hpf; Red Blood Cells, Urine 0-2 /hpf (0-2); Squamous Epithelial Cells Few /hpf (Few)
[2025-02-11] MEDS ORDERED: Lactated Ringer's 1,000 ML IV SCH (15:30)
[2025-02-11] MEDS ORDERED: FentaNYL Citrate 50 MCG/ML 2 ML Injection IV PRN (15:30)
[2025-02-11] MEDS ORDERED: Piperacillin/Tazobactam Sod 3.375 GM in NS 100 ML IV SCH (16:00)
--- NOTE | 2025-02-11 18:30 | NUR ---
ADMISSION PATIENT ADMITTED TO MEDICAL FLOOR. PATIENT ALERT AND INTERACTIVE. PATIENT ABLE TO AMBULATE TO BR WITH WALKER AND STAND BY ASSIST. PATIENT CHANGED INTO GOWN. ON RETURN BACK TO BED, PATIENT VERBALIZED DIZZINESS WHEN SHE LAID DOWN. PATIENT STATES THAT SHE HAS PROBLEMS WITH DIZZINESS AT TIMES WHEN SHE LAYS DOWN. PATIENT INSTRUCTED TO CALL WHEN NEEDS TO GET OUT OF BED FOR SAFETY.
[2025-02-11 19:36] VITALS: BP 149/81
[2025-02-11] MEDS ORDERED: Lactobacil 2-S.Thermo-Bifido 1 1 Cap PO SCH (21:00)
[2025-02-11] MEDS ORDERED: NS 250 ML IV PRN (22:30)
[2025-02-12 04:23] VITALS: BP 120/61
--- NOTE | 2025-02-12 04:32 | NUR ---
SHIFT SUMMARY PT A&Ox4 AND PLEASANT. PT C/O LEFT ABD PAIN ONCE DURING THE NIGHT. MEDICATED PER EMAR WITH GOOD EFFECT. LR INFUSING @ 100ml/hr. IV ABX GIVEN PER ORDER. PT TOLERATING CL DIET. DENIES N/V. BED ALARM ON DURING THE NIGHT. BED IN LOWEST POSTION AND CALL LIGHT IN REACH.
[2025-02-12 04:38] LABS: BASOPHILS ABSOLUTE AUTO 0.04 K/mm3 (0.00-0.23); BASOPHILS PERCENT AUTO 0 % (0-2); EOSINOPHILS ABSOLUTE AUTO 0.15 K/mm3 (0.00-0.68); EOSINOPHILS PERCENT AUTO 2 % (0-6); Hematocrit 27.4 % (33.0-51.0); Hemoglobin 9.1 g/dL (11.5-16.0); IMMATURE GRAN ABSOLUTE AUTO 0.06 K/mm3 (0.00-0.10); IMMATURE GRAN PERCENT AUTO 1 % (0-1); LYMPHOCYTES PERCENT AUTO 12 % (21-46); MONOCYTES ABSOLUTE AUTO 0.96 K/mm3 (0.16-1.47); MONOCYTES PERCENT AUTO 10 % (4-13); Mean Corpuscular HGB 31.2 pg (26.0-34.0); Mean Corpuscular HGB Conc 33.2 g/dL (31.5-36.5); Mean Corpuscular Volume 94 fL (80-100); Mean Platelet Volume 8.6 fL (9.1-12.4); NEUTROPHILS ABSOLUTE AUTO 6.93 K/mm3 (1.96-9.15); NEUTROPHILS PERCENT AUTO 75 % (41-73); Platelet Count 339 K/mm3 (150-400); RDW Coefficient Variation 12.8 % (11.7-14.2); RDW Standard Deviation 43.9 fL (35.1-46.3); Red Blood Cell Count 2.92 M/mm3 (3.80-5.20); White Blood Cell Count 9.24 K/mm3 (4.00-11.30)
[2025-02-12 05:02] LABS: Bun/Creatinine Ratio 8.2 (12.0-20.0); Calcium, Blood 8.7 mg/dL (8.5-10.1); Creatinine, Blood 0.85 mg/dL (0.40-1.00); Potassium, Blood 3.6 mmol/L (3.5-5.5)
[2025-02-12 07:31] VITALS: BP 118/59
[2025-02-12] MEDS ORDERED: Enoxaparin 40 MG/0.4 ML SYR SC SCH (09:00)
[2025-02-12 15:48] VITALS: BP 137/67
--- NOTE | 2025-02-12 18:32 | NUR ---
PT A&OX4, RA, NON TELE. DR. MAS CONSULTED TODAY AND DOES NOT PLAN ON DOING SURGERY AT THIS TIME. PT REPORTS NO ABDOMINAL PAIN, AND WOULD LIKE TO ADVANCE DIET. IV LR DISCONTINUED, IV ANTIBIOTICS GIVEN ORDERED. UP TO BATHROOM 1 PA WITH FWW.
[2025-02-12 19:49] VITALS: BP 131/71
[2025-02-13 03:17] VITALS: BP 132/64
--- NOTE | 2025-02-13 04:22 | NUR ---
SHIFT SUMMARY PT ALERT ORIENTED X 4 ABLE TO VERBALIZE NEEDS. NO C/O PAIN THIS SHIFT. GETS UP WITH SBA AND AMBULATES TO THE BATHROM. REMAINS ON ZOSYN Q6HR. VSS ON RA SATTING AT 98%. NO C/O ABD PAIN. LABS TO BE DRAWN THIS AM. NO CHANGES THIS SHIFT. SHES BEEN SLEEPING OFF AND ON DOING WELL. RESTING IN BED AT THIS TIME WITH CALL LIHT IN REACH
[2025-02-13 04:50] LABS: BASOPHILS ABSOLUTE AUTO 0.05 K/mm3 (0.00-0.23); BASOPHILS PERCENT AUTO 1 % (0-2); EOSINOPHILS ABSOLUTE AUTO 0.24 K/mm3 (0.00-0.68); EOSINOPHILS PERCENT AUTO 4 % (0-6); Hemoglobin 9.1 g/dL (11.5-16.0); IMMATURE GRAN ABSOLUTE AUTO 0.03 K/mm3 (0.00-0.10); IMMATURE GRAN PERCENT AUTO 1 % (0-1); LYMPHOCYTES ABSOLUTE AUTO 1.33 K/mm3 (0.84-5.20); LYMPHOCYTES PERCENT AUTO 20 % (21-46); MONOCYTES ABSOLUTE AUTO 1.11 K/mm3 (0.16-1.47); MONOCYTES PERCENT AUTO 17 % (4-13); Mean Corpuscular HGB 30.7 pg (26.0-34.0); Mean Corpuscular HGB Conc 32.5 g/dL (31.5-36.5); Mean Corpuscular Volume 95 fL (80-100); Mean Platelet Volume 8.5 fL (9.1-12.4); NEUTROPHILS ABSOLUTE AUTO 3.87 K/mm3 (1.96-9.15); NEUTROPHILS PERCENT AUTO 58 % (41-73); Platelet Count 343 K/mm3 (150-400); RDW Coefficient Variation 12.4 % (11.7-14.2); RDW Standard Deviation 43.6 fL (35.1-46.3); Red Blood Cell Count 2.96 M/mm3 (3.80-5.20); White Blood Cell Count 6.63 K/mm3 (4.00-11.30)
[2025-02-13 05:20] LABS: Bun/Creatinine Ratio 6.5 (12.0-20.0); Calcium, Blood 8.7 mg/dL (8.5-10.1); Creatinine, Blood 0.92 mg/dL (0.40-1.00); Potassium, Blood 3.7 mmol/L (3.5-5.5)
[2025-02-13 07:20] VITALS: BP 157/70
[2025-02-13] MEDS ORDERED: AMOCLA875 PO (14:00)
[2025-02-13] MEDS ORDERED: VISBIOME 112.51 EACH PO (14:00)
--- NOTE | 2025-02-13 15:38 | NUR ---
PT DISCHARGED AT 1420. PT HAS BEEN AOX4 AND COOPERATIVE OF CARE. PT HAS BEEN A STANDBY ASSIT TO TRANSFER AND CAN MAKE NEEDS KNOWN.PT HAD PAPERWORK REVIEWED AND EDUCATIONAL MATERIAL SENT WITH HER. NO DISTRESS NOTED. ALL PERSONAL BELONINGS COLLECTED AND TAKEN WITH HER. PT ESCORTED OUT TO ENTRANCE VIA WHEELCHAIR BY AID.
== END 2025-02-13 14:21 | disposition home or self-care (01) | DRG 392 ==
LOC: ER 11:23 → MEDS 11:24
PROVIDERS: Student in an Organized Health Care Education/Training Program; ADMIT Family Medicine
DX: K57.32 Diverticulitis of large intestine without perforation or abscess without bleeding (principal); I10 Essential (primary) hypertension; I25.10 Atherosclerotic heart disease of native coronary artery without angina pectoris; K21.9 Gastro-esophageal reflux disease without esophagitis; N28.1 Cyst of kidney, acquired; D64.9 Anemia, unspecified; E78.00 Pure hypercholesterolemia, unspecified; Z79.899 Other long term (current) drug therapy; Z90.49 Acquired absence of other specified parts of digestive tract; Z88.2 Allergy status to sulfonamides; Z88.1 Allergy status to other antibiotic agents; Z91.013 Allergy to seafood
CPT/HCPCS: 36415; 74177; 80048; 80053; 81001; 83690; 85025; 93005; 93010; 96361; 96365; 96366; 96372; 96374; 96375; 96376; 99285-25; A9270; G0378; J1650; J2543; J3010; J7050; J7120; Q9967

== ENCOUNTER 2025-03-03 11:42 | Emergency (ER) | payer OTHER ==
[~2025-03-03] VITALS: Ht 165.1 cm; Wt 53.5 kg
[~2025-03-03 11:42] MED LIST changes: +VISBIOME 112.51 EACH PO
[2025-03-03 12:16] VITALS: BP 169/86
[2025-03-03 13:23] LABS: Source, Urine Clean Catch
[2025-03-03 13:31] LABS: Appearance, Urine Cloudy (Clear); Bilirubin, Urine Neg (Neg); Blood, Urine 4+ (Neg); Color, Urine Yellow (P-Yellow); Glucose Qualitative, Urine Neg (Neg); Ketones, Urine Neg (Neg); Leukocyte Esterase, Urine 3+ (Neg); Nitrite, Urine Pos (Neg); Protein, Urine 2+ (Neg); Specific Gravity, Urine 1.025 (1.003-1.022); Urobilinogen, Urine NORM (Normal)
[2025-03-03 13:50] LABS: White Blood Cells, Urine TNTC /hpf (0-5)
[2025-03-03 13:52] LABS: Bacteria Many /hpf; Squamous Epithelial Cells Mod /hpf (Few)
[2025-03-03] MEDS ORDERED: CEPH500 PO (14:14)
== END 2025-03-03 14:20 | disposition home or self-care (01) ==
LOC: ER 11:42
PROVIDERS: Physician Assistant
DX: N39.0 Urinary tract infection, site not specified (principal); Z88.2 Allergy status to sulfonamides; Z88.1 Allergy status to other antibiotic agents
CPT/HCPCS: 81001; 87077; 87086; 87186; 99283